=== PATIENT | female | born 1985 | race Caucasian/White ===

== ENCOUNTER 2019-06-02 05:36 | Inpatient (IN) | payer MEDICAID, OTHER ==
[~2019-06-02 05:36] MED LIST: CEFAZOLIN 2 GM in Premix Bag 1 BAG IVPB SCH; Ondansetron PF 4 MG/2 ML Vial IVP PRN; Promethazine HCl 25 MG/ML VIAL IM PRN; hydrALAZINE 20 MG/ML VIAL SLOW IVP PRN
[2019-06-02] MEDS ORDERED: Bicitra 30 ML UDCUP PO SCH (05:45)
[2019-06-02] MEDS ORDERED: CEFAZOLIN 2 GM, Admixture Fee 1 EACH in Sodium Chloride 0.9% 100 ML IVPB SCH (06:00)
[2019-06-02] MEDS: Lactated Ringer's 1,000 ML IV SCH ×3 (06:21→23:34)
[2019-06-02 06:23] LABS: Hemoglobin 11.4 g/dL (12.0-16.0); Mean Corpuscular HGB CONC 33.7 g/dL (32.0-36.0); Mean Corpuscular Hemoglobin 26.2 pg (27.0-31.0); Mean Corpuscular Volume 77.9 fL (78.0-98.0); Mean Platelet Volume 7.6 fL (7.4-10.4); Platelet Count 280 thou/uL (130-400); RBC Distribution Width 15.9 % (11.5-14.5); Red Blood Cell (RBC) Count 4.35 mill/uL (4.20-5.40); White Blood Cell (WBC) Count 8.8 thou/uL (4.8-10.8)
[2019-06-02] MEDS ORDERED: MORPHINE 5 MG/10 ML PF VIAL ONE (06:58)
[2019-06-02] MEDS ORDERED: Phenylephrine HCL 10 MG/ML VIAL ONE (06:59)
[2019-06-02] MEDS ORDERED: Ondansetron PF 4 MG/2 ML Vial ONE ×2 (06:59→15:47)
[2019-06-02] MEDS ORDERED: Ketorolac Tromethamine 30 MG/ML VIAL ONE ×2 (06:59→15:47)
[2019-06-02] MEDS ORDERED: Dexamethasone 4 mg/ml Vial ONE (06:59)
[2019-06-02] MEDS ORDERED: Oxytocin 10 UNITS/ML VIAL ONE (06:59)
[2019-06-02] MEDS ORDERED: ePHEDrine/0.9% NaCl/PF SYRINGE 50 mg/10 ml ONE (06:59)
[2019-06-02] MEDS ORDERED: Fentanyl 100 MCG/2 ML VIAL ONE (07:02)
--- NOTE | 2019-06-02 07:03 | PDOC.FPROB ---
FMR OB H&P: HPI - History of Present Illness Chief Complaint: rCSX History of Present Illness: 34 yo @ 36.1 weeks dated by 16.6 week sono presents for repeat Csx. Pt saw MFM who recommended Csx at 36-37 weeks due to previous Csx having midtransverse incision on the uterus and having lots of adhesions. Pt reports FM. Denies ctx. Denies any vaginal bleeding, vaginal discharge or itching. Denies any urinary symptoms or burning when peeing. 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 1 hour gtt: 113 GBS: negative FMR OB H&P: History - Past Medical History PMH: Childhood asthma - OB History OB History: 2 prior - [employer] History [employer] History: High risk HPV on pap - Surgical History Sx History: 2 prior - Social History Social History: Denies any alcohol, smoking or illicit drug use - Family History Family History: Noncontributory FMR OB H&P: Medications - Current Home Medications: Medication Instructions Recorded Confirmed Type Pnv No.95/Ferrous Fum/Folic AC 1 tablet PO DAILY 05/08/15 05/08/15 History [ Tablet] Ibuprofen [Motrin] 800 mg PO Q8HR #0 tab 05/10/15 Rx Allergies/Adverse Reactions: Allergies Allergy/AdvReac Type Severity Reaction Status Date / Time No Known Drug Allergies Allergy Verified 05/08/15 05:38 FMR OB H&P: ROS - Review of Systems General: denies: fever/chills, weight/appetite/sleep changes Eyes: denies: vision changes ENT: denies: nasal congestion, sinus pain/pressure Cardiovascular: denies: chest pain, edema Respiratory: denies: cough, congestion, shortness of breath Gastrointestinal: denies: abdominal pain, nausea, vomiting, diarrhea, constipation Genitourinary (Female): denies: incontinence, dysuria, hematuria, vaginal discharge, vaginal pain, vaginal bleeding Musculoskeletal: denies: pain, stiffness, tenderness Integumentary: denies: itching, rash, lesions Psychological: denies: depression, anxiety FMR OB H&P: Vital Signs - Maternal Vital signs: BP 117/69, P 103 T 97.8 RR 18 - Heart Tones Baseline: 135 Variability: moderate Acceleration: present Deceleration: absent Category: category 1 [place] contractions every: None noted FMR OB H&P: Physical Exam - Physical Exam General: NAD, awake, alert and oriented HEENT: normocephalic and atraumatic, grossly normal vision, grossly normal hearing Neck: supple, trachea midline Heart: RRR, normal S1/S2, no murmurs/rubs/gallops, pulses present, no edema General: no respiratory distress, good air movement, no rales/rhonchi, no wheezing Abdomen: soft, gravid, non-tender, bowel sound present, no masses Musculoskeletal: normal gait and station, FROM in all four extremities Neurological: sensation to pain,touch and proprioception grossly normal, no focal deficit Skin: no rash, good tugor, capillary refill <2 seconds Lymphatic: no unusual bruising or bleeding Psychiatric: intact recent and remote memory, good judgement and insight, normal mood and affect FMR OB H&P: Results - Labs Lab results: Laboratory Results - last 24 hr 06/02/19 06/02/19 05:41 05:41 WBC 8.8 RBC 4.35 Hgb 11.4 L Hct 33.8 L MCV 77.9 L MCH 26.2 L MCHC 33.7 RDW 15.9 H Plt Count 280 MPV 7.6 Blood Type O POSITIVE Antibody Screen NEGATIVE FMR OB H&P: A/P - Problem List (1) Current Visit: Yes Status: Acute Qualifiers: Weeks of gestation: 36 weeks Qualified Code(s): Z3A.36 - 36 weeks gestation of Disposition: 34 yo presents for rCsx @ 36.1 wks dated by 16.6 week sono. -Cat 1 strip. -Ancef ordered for abx. -MFM recommended at 36-37 weeks due to adhesion complications on prior . Hx of Midtransverse uterine incision Anemia of -Hgb Stable -taking PNV High Risk HPV -Will want pap retest in 1 year
[2019-06-02 07:05] LABS: HBSAg Index 0.32 S/CO (0-0.99); Hep B Surf Ag Non-Reactive S/CO (NonReactive); Syphilis Antibody Nonreactive (Nonreactive); Syphilis Antibody Index 0.04 S/CO (<1.00 Non-Reactive)
[2019-06-02] MEDS ORDERED: Ondansetron HCl/PF 4 MG/2 ML Vial IVP PRN (09:17)
[2019-06-02] MEDS ORDERED: Promethazine HCl 25 MG SUPP PR PRN (09:17)
[2019-06-02] MEDS ORDERED: Meperidine HCl/PF 25 MG/ML VIAL SLOW IVP PRN (09:17)
[2019-06-02] MEDS ORDERED: diphenhydrAMINE 50 MG/ML VIAL IVP PRN (09:17)
[2019-06-02] MEDS ORDERED: L&D-Morphine 4 MG/ML VIAL SLOW IVP PRN (09:17)
[2019-06-02] MEDS ORDERED: Naloxone HCl 0.4 mg/ml Vial IV PRN (09:17)
[2019-06-02] MEDS ORDERED: HYDROmorphone 2 MG/ML VIAL SLOW IVP PRN (09:17)
[2019-06-02] MEDS ORDERED: Promethazine HCl 25 MG/ML VIAL IM PRN (09:17)
[2019-06-02] MEDS ORDERED: Ondansetron PF 4 MG/2 ML Vial IVP PRN (09:17)
[2019-06-02] MEDS ORDERED: Naloxone HCl 0.4 mg/ml Vial IVP PRN ×2 (09:17)
[2019-06-02] MEDS ORDERED: Morphine 2 MG/ML SYRINGE SLOW IVP PRN (09:18)
[2019-06-02] MEDS ORDERED: Adacel (T-DAP) 0.5 ML SYRINGE IM ONE (09:28)
[2019-06-02] MEDS ORDERED: Methylergonovine 0.2 MG TAB PO PRN (09:28)
[2019-06-02] MEDS ORDERED: Misoprostol 200 MCG TAB PR PRN (09:28)
[2019-06-02] MEDS ORDERED: Methylergonovine 0.2 MG/ML VIAL IM PRN (09:28)
[2019-06-02] MEDS ORDERED: Bisacodyl 10 MG SUPP PR PRN (09:28)
[2019-06-02] MEDS ORDERED: Acetaminophen 325 MG TAB PO PRN (09:28)
[2019-06-02] MEDS ORDERED: Communication Order-Pharmacy FS SCH (09:30)
[2019-06-02] MEDS ORDERED: Ketorolac Tromethamine 30 MG/ML VIAL IVP SCH (09:30)
[2019-06-02] MEDS: Ketorolac Tromethamine 30 MG/ML VIAL IVP SCH ×3 (13:09→21:40)
--- NOTE | 2019-06-02 15:21 | OP ---
DATE OF PROCEDURE: 06/02/2019 POSTOPERATIVE DIAGNOSIS: Family history of ovarian cancer requesting risk-reducing salpingectomy. POSTOPERATIVE DIAGNOSIS: Family history of ovarian cancer requesting risk-reducing salpingectomy. PROCEDURE PERFORMED: Bilateral salpingectomies. COMPLICATIONS: None. TECHNIQUE IN DETAIL: I was asked to come to the operating room after the delivery of this patient by section. Dr. Sterling and the residents had closed the uterus and it was hemostatic. The uterus was exteriorized and both adnexa were visualized. These were normal bilaterally. Annmarie clamps were used to clamp, excise, and suture ligate serial portions of the mesosalpinx on each side. These were secured using suture ties of 2-0 chromic. Good hemostasis was noted along both suture lines and both segments of tube were submitted for pathological analysis. Minimal blood loss was encountered during this procedure. I then supervised the residence with the remainder of the case and the closure of the abdomen. Job ID: [id number]
[2019-06-02] MEDS ORDERED: PHENYLEPHRINE-NS 100 MCG/ML 10 ML SYRINGE ONE ×2 (15:47)
[2019-06-02] MEDS ORDERED: ePHEDrine 50 MG/ML VIAL ONE (15:47)
[2019-06-02] MEDS ORDERED: Dexamethasone 20 MG/5 ML VIAL ONE (15:47)
[2019-06-02] MEDS ORDERED: Sodium Chloride 0.9% 10 ML ONE (15:47)
[2019-06-02] MEDS ORDERED: NS / Oxytocin 40 units/1000ml 1,000 ML IV SCH (16:00)
[2019-06-02] MEDS: Ferrous Sulfate 325 MG TAB PO SCH (17:33)
[2019-06-02] MEDS ORDERED: HYDROcodone/Acetaminophen 5/325 mg Tablet PO PRN (21:30)
[2019-06-03] MEDS: Ketorolac Tromethamine 30 MG/ML VIAL IVP SCH ×2 (05:34→10:41)
--- NOTE | 2019-06-03 06:36 | PDOC.PP ---
Post Progress Note Post Day #: 1 Subjective: Ms. Sullivan is a 34yo now delivered at 36.1 weeks via repeat at 8:03am on 06/02/2019. was performed d/t history of high transverse and history of significant adhesions with her prior at the recommendation of [facility]. Overnight she has no complaints. She has scant lochia. She denies abdominal pain , chest pain, brisk vaginal bleeding, or shortness of breath. PO intake tolerated: yes Flatus: yes Ambulation: yes Vital Signs (12 hours) Temp Pulse Resp BP BP Pulse Ox 06/03/19 03:00 98.4 F 73 16 104/62 06/02/19 23:30 98.2 F 71 20 109/56 L 100 06/02/19 20:15 97.9 F 82 20 100/66 98 Weight Weight 110.677 kg - Physical Examination General: NAD Cardiovascular: no m/r/g, RRR Respiratory: clear to auscultation bilaterally, non-labored breathing Abdominal: + bowel sounds, lochia, no distention, appropriately TTP Skin: CS incision dry & intact, no rash Neurological: no gross focal deficits Psychiatric: A&Ox3, normal affect Result Diagrams: 06/03/19 08:22 Additional Labs: Post Labs Blood Type O POSITIVE 06/02/19 05:41 Hep Bs Antigen Non-Reactive S/CO (NonReactive) 06/02/19 05:41 (1) S/P section Code(s): Z98.891 - HISTORY OF UTERINE SCAR FROM PREVIOUS SURGERY Status: Acute (2) delivery Code(s): O60.10X0 - LABOR W DELIVERY, UNSP TRIMESTER, UNSP Status: Acute - Assessment/Plan 1. delivery via , routine care * Patient is doing well this morning. * Due to status, was given antibiotics. * Incision is clean, dry and intact. * Rubella immune * Blood type O+. * Likely home tomorrow 2. Risk reducing bilateral salpingectomy * Due to + family history of ovarian cancer in sister. 3. Anemia of * stable, continue taking vitamins 4. HPV positive * repeat pap within 1 year. Addendum - Attending - Attending Attestation Date/Time: 06/03/191934 I personally evaluated the patient and discussed the management with Dr. Lara. I agree with the History, Examination, Assessment and Plan documented above with any addition or exceptions noted below.
[2019-06-03] MEDS: Lactated Ringer's 1,000 ML IV SCH ×2 (07:41→12:56)
[2019-06-03 08:41] LABS: Hemoglobin 9.3 g/dL (12.0-16.0); Mean Corpuscular Hemoglobin 26.8 pg (27.0-31.0); Mean Corpuscular Volume 78.8 fL (78.0-98.0); Mean Platelet Volume 7.5 fL (7.4-10.4); Platelet Count 227 thou/uL (130-400); RBC Distribution Width 15.9 % (11.5-14.5); Red Blood Cell (RBC) Count 3.45 mill/uL (4.20-5.40); White Blood Cell (WBC) Count 7.9 thou/uL (4.8-10.8)
[2019-06-03] MEDS: Simethicone Chewable 80 MG TAB PO PRN ×2 (10:40→21:26)
[2019-06-03] MEDS: HYDROcodone/Acetaminophen 5/325 mg Tablet PO PRN (10:40)
[2019-06-03] MEDS: Ferrous Sulfate 325 MG TAB PO SCH ×2 (10:40→16:57)
[2019-06-03] MEDS: Ibuprofen 800 MG TAB PO SCH ×2 (15:15→21:26)
[2019-06-03] MEDS ORDERED: Polyethylene Glycol 3350 17 GM Packet PO PRN (21:37)
[2019-06-04] MEDS: HYDROcodone/Acetaminophen 5/325 mg Tablet PO PRN ×2 (03:28→09:38)
[2019-06-04] MEDS: Ibuprofen 800 MG TAB PO SCH (05:31)
--- NOTE | 2019-06-04 06:32 | PDOC.PP ---
Post Progress Note Post Day #: 2 Subjective: Patient states she is doing well, she was able to sleep some last night. She is breast feeding and it is going well. She is ambulating and has no problems with urination. Scant lochia present. Denies abdominal pain, chest pain, shortness of breath, or dysuria. PO intake tolerated: yes Flatus: yes Ambulation: yes Vital Signs (12 hours) Temp Pulse Resp BP 06/04/19 03:25 98.1 F 88 20 95/53 L 06/04/19 00:15 98.7 F 85 16 93/51 L Weight Weight 110.677 kg - Physical Examination General: NAD Cardiovascular: no m/r/g, RRR Respiratory: clear to auscultation bilaterally, non-labored breathing Abdominal: + bowel sounds, lochia, no distention, appropriately TTP Extremities: negative homans (B) Skin: CS incision dry & intact, no rash Neurological: no gross focal deficits Psychiatric: A&Ox3, normal affect Result Diagrams: 06/03/19 08:22 Additional Labs: Post Labs Blood Type O POSITIVE 06/02/19 05:41 Hep Bs Antigen Non-Reactive S/CO (NonReactive) 06/02/19 05:41 (1) S/P section Code(s): Z98.891 - HISTORY OF UTERINE SCAR FROM PREVIOUS SURGERY Status: Acute (2) delivery Code(s): O60.10X0 - LABOR W DELIVERY, UNSP TRIMESTER, UNSP Status: Acute - Assessment/Plan 1. delivery via , routine care * Patient is doing well this morning. * Due to status, was given antibiotics. * Incision is clean, dry and intact. * Rubella immune * Blood type O+. * Discharge home today. Follow up with [facility] in 1 week. Take tylenol and motrin as needed for pain. 2. Risk reducing bilateral salpingectomy * Due to + family history of ovarian cancer in sister. 3. Anemia of * stable, continue taking vitamins 4. HPV positive * repeat pap within 1 year. Addendum - Attending - Attending Attestation Date/Time: 06/04/19 1151 I personally evaluated the patient and discussed the management with Dr. Lara. I agree with the History, Examination, Assessment and Plan documented above with any addition or exceptions noted below.
[2019-06-04 08:34] VITALS: BP 101/59; TEMP 98.2
[2019-06-04] MEDS ORDERED: Docusate 100 MG CAP PO SCH (09:00)
[2019-06-04] MEDS: Lactated Ringer's 1,000 ML IV SCH (09:37)
[2019-06-04] MEDS: Simethicone Chewable 80 MG TAB PO PRN (09:38)
[2019-06-04] MEDS: Ferrous Sulfate 325 MG TAB PO SCH (09:38)
--- NOTE | 2019-06-06 09:41 | OP ---
DATE OF PROCEDURE: 06/02/2019 DELIVERING PHYSICIAN: Aamir Stewart MD, PGY3. ATTENDING: Gilmer Sterling MD and Giovanny Crooks MD HOTHOUSE WORKER SURGEON: Payal Lara, PGY1. PROCEDURE PERFORMED: Repeat low transverse section. PREOPERATIVE DIAGNOSES: 1. Pre-term intrauterine . 2. Previous section x2. 3. History of a mid transverse uterine incision. 4. Family history with sister with ovarian cancer. 5. Anemia of . POSTOPERATIVE DIAGNOSIS: 1. Pre-term intrauterine . 2. Previous section x2. 3. History of a mid transverse uterine incision. 4. Family history with sister with ovarian cancer. ANESTHESIA: Spinal. INDICATIONS: This patient is a 34-year-old, G3, P2-0-0-2 female at 36-1/7th weeks gestation who presents for a repeat scheduled . This was recommended by the [facility] specialist to deliver in the pre-term phase due to history of prior with a mid transverse uterine incision and history of adhesions. We also did a bilateral risk reducing salpingectomy due to the patient's family history of a sister with ovarian cancer. PROCEDURE IN DETAIL: After risks, benefits, and alternatives were explained, the patient gave informed consent. Preoperative antibiotics included cefazolin 2 g IV. The patient was taken to the operating room and spinal anesthesia was initiated. She was placed in the supine position with left tilt and prepped and draped in usual sterile fashion. A Pfannenstiel incision was made with a scalpel and carried down to the level of the fascia, which was sharply nicked. Fascial cut was extended bilaterally with Morrow scissors. Inferior and superior edges of the cut fascial edges were elevated with Desean clamps and the underlying rectus muscles were sharply and bluntly dissected free. The recti were divided digitally and retracted manually. There was noted to be a few adhesions, but visualization was able to be obtained. Any bleeders were made hemostatic with the Bovie cautery. Peritoneum was entered bluntly and retracted manually. An Fredrick O retractor was placed. Again at this time, we were able to make a low transverse score with a scalpel and the uterus was entered in the midline with a scalpel. Clear fluid was seen. The hysterotomy was extended manually. Infant was noted to be vertex and easily delivered by fundal pressure. Mouth and nares were bulb suctioned. Cord clamped and cut and grossly normal. Normal female was handed to the waiting nurse. Cord blood was obtained. Placenta was manually extracted, found to be intact with 3 vessel cord and discarded. The uterus was then externalized and the endometrium was curetted with a dry lap. We placed the uterus back in the abdomen with the Fredrick O and the uterus was closed with a running locking 0 Vicryl suture and following this, hemostasis was noted. At this time, please refer to Dr. Giovanny Crooks's note on the bilateral risk reducing salpingectomy procedure. The Fredrick O was removed and the uterus was externalized and the fallopian tubes were removed bilaterally using 2-0 chromic suture tying it off. The abdomen was irrigated with saline and suctioned free of clots. Uterus was internalized and the hysterotomy was again noted to be hemostatic. The fascia was closed with a running nonlocking 0 Vicryl suture. The subcutaneous tissue was irrigated and there were no bleeders. The subcutaneous was closed with three 3-0 Vicryl interrupted sutures. Skin was approximated with a 3-0 Vicryl running subcuticular stitch. Pressure dressing was placed. All counts were correct. The patient tolerated the procedure well and was taken to recovery room in stable condition. QBL: 990 mL. COMPLICATIONS: None. SPECIMENS: Cord blood sent to lab for blood type. FINDINGS: Grossly normal female infant with Apgars of 8 and 8. Infant did need to require 10 minutes of blow-by CPAP due to low oxygen saturation, but would recover easily afterwards. Grossly normal placenta with 3 vessel cord discarded. DRAINS: Garrett to gravity draining clear urine. Job ID: [id number]
== END 2019-06-04 13:40 | disposition home or self-care (01) | DRG 783 ==
LOC: L&D 05:36 → 3SW 11:14
PROVIDERS: ADMIT Family Medicine; ATTEND Family Medicine
PROC: 10D00Z1 Extraction of Products of Conception, Low, Open Approach (ICD-10-PCS; principal; 2019-06-02)
PROC: 0UB70ZZ Excision of Bilateral Fallopian Tubes, Open Approach (ICD-10-PCS; 2019-06-02)
DX: O34.211 Maternal care for low transverse scar from previous cesarean delivery (principal); O60.14X0 Preterm labor third trimester with preterm delivery third trimester, not applicable or unspecified; O98.52 Other viral diseases complicating childbirth; O99.52 Diseases of the respiratory system complicating childbirth; O99.02 Anemia complicating childbirth; D64.9 Anemia, unspecified; B00.9 Herpesviral infection, unspecified; N85.8 Other specified noninflammatory disorders of uterus; J45.909 Unspecified asthma, uncomplicated; Z3A.36 36 weeks gestation of pregnancy; Z37.0 Single live birth; Z30.2 Encounter for sterilization
CPT/HCPCS: 36415; 51702; 85027; 86780; 86850; 86900; 86901; 87340; 88302; J0690; J1100; J1885; J2274; J2370; J2405; J2590; J3010; J3490